=== PATIENT | female | born 1955 | race Caucasian/White ===

== ENCOUNTER 2020-10-26 07:01 | Inpatient (IN) | payer OTHER ==
--- OUTSIDE RECORDS SUMMARY | 2020-10-26 07:04 | XMS REPORT | Continuity of Care Document ---
:[address] [facility] t Address [address] [place] [address] Care Team Providers Name Role Phone Zahida Andersen PTA Attending Clinician Unavailable Mahin Vasquez PT Attending Clinician Unavailable Doctor Unassigned, Name Attending Clinician Unavailable Payers Payer Name Policy Type Policy Number Effective Date Expiration Date S ource Problems This patient has no known problems. Allergies, Adverse Reactions, Alerts Allergy Allergy Status Severity Reaction(s) Onset Inactive Treating Comm ents Source Name Type Date Date Clinician [place] DA Active [facility] 08-22 [place] [facility] penicill DA Active [place] [facility] in G 08-22 [place] 00:[facility]: d [facility] penicill DA Active SV 0 [facility] amine 08-17 [place] 00:[facility]: [facility]ope 00 [facility] hydrocor DA Active [facility] tisone 08-17 [place] 00:00: Orthope 00 [facility] hydrocod DA Active SV 0 [facility] one 08-17 [place] 00:[facility]: d [facility] Penicill DA Active SV 0 [facility] ins 08-17 [place] 00:00: [place] 00 [facility] penicill DA Active MO 2013-05 [facility] in 05-25 [place] 00:00: Orthope 00 dic Hosp[facility] l Medications This patient has no known medications. Procedures This patient has no known procedures. Encounters Start End Encounter Admission Attending Care Care Encounter Source Date/Time Date/Time Type Type Clinicians Facility Department ID 2020-08-28 2020-08-28 [place] Quintero [id number] 13:02:36 13:53:31 Visit Reji Camacho 350.1.13.10 [place] 4.2.7.2.686 Professio [id number] nal 179 Building 2020-08-24 2020-08-24 Ancillary Mahin [facility] [id number] 14:02:24 14:57:49 Visit Pedro Doug 350.1.13.10 [place] 4.2.7.2.686 Professio [id number] nal 179 [facility] 2020-08-24 2020-08-24 Orders Doctor SUZI [id number] 00:00:00 00:00:00 Only Unassigned, [place]OR[place] 350.1.13.10 [place] [facility] 4.2.7.2.686 [id number] 009 2018-09-16 2018-09-16 Outpatient [facility] PRABHU [address] [facility] 09:34:00 09:34:00 l García [facility] l [facility] l Results Test Description Test Time Test Comments Results Result [facility] e Comments - XR ABD COMP W 2020-10-14 APR/ 10:37:00 [facility] 1955 Sex: F Name: ZULY IZAGUIRRE [facility] : 1955 Age/S: 65 / F [address] Unit #: [id number] Loc: [place] [address] Phys: Undefined Provider Acct: [id number] Dis Date: Status: REG REF PHONE #: [phone] Exam Date: 10/14/2020 1009 FAX #: Reason: DARK EMESIS EXAMS: CPT: [id number] XR ABD COMP W APR/ERE Fluoro Time: DAP (Gy m2): Air Kerma (mGy): EXAM: - XR ABD COMP W APR/ERE INDICATION: DARK EMESIS Location: T 18. COMPARISON: None. TECHNIQUE: Upright and supine abdominal radiographs. FINDINGS: No bowel obstruction, ileus or free air seen. Moderate to largeamount of stool in the colon. IMPRESSION: No bowel obstruction, ileus or free air seen. Moderate to large amount of stool. at 1037 Reported and signed by: Alan Griffin M.D. CC: PAGE 1 Signed Report Name: ZULY IZAGUIRRE [facility] : 1955 Age/S: 65 / F [address] Unit #: [id number] Loc: [place] [address] Phys: Undefined Provider Acct: [id number] Dis Date: Status: REG REF PHONE #: [phone] Exam Date: 10/14/2020 1009 FAX #: Reason: DARK EMESIS EXAMS: CPT: [id number] XR ABD COMP W APR/ERE Fluoro Time: DAP (Gy m2): Air Kerma (mGy): <Continued> Technologist: RT Telma(R) Trnscb Date/Time: 10/14/2020 (1037) [email or web address] Orig Print D/T: S: 10/14/2020 (1041) PAGE 2 Signed Report COVID 19 Asymptomatic IH AG 2020-10-05 15:00:00 Test Item Value Reference Range Interpretation Comme nts COVID 19 Asymptomatic IH AG (test code = COVNONPUIAG) NEGATIVE NEGATIVE HGB [id number] 05:45:00 Test Item Value Reference Range Interpretation Comments HEMOGLOBIN (test code = HGB) 7.8 g/dL 12-16 L HEMATOCRIT (test code = HCT) 24.6 % 37-47 L HGB [id number] 06:48:00 Test Item Value Reference Range Interpretation Comments HEMOGLOBIN (test code = 6.8 g/dL 12-16 LL VERI FIED BY REPEAT HGB) ANALYSIS.CRITIC AL VALUE CALLED TO [facility]/TERRY RANGELREAD BACK & CONFIRMED? KELTON CampoLAB.MAV 10/04 0648 HEMATOCRIT (test code = 21.3 % 37-47 L HCT) SPECIMEN COMMENT: POD #1- XR KNEE 1 OR 2 V [id number] 16:50:[address] 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 at 1650 Reported and signed by: Jacob Gomes MD CC: Reji Solis MD Technologist: MCKENZIE MAHAN, RT(R) Transcribed D/ (1650) t.EDGARR.[facility] NAME: ZULY IZAGUIRRE [address] [facility] PHYS: Reji Doan MD : 1955 AGE: 65 SEX: F [place], [place] [address] LOC: Y.519 A PHONE #: [phone] EXAM DATE: 10/03/2020 STATUS: ADM IN FAX #: [phone] RAD #: D/C DT PAGE 1 Signed Report Patient Name: ZULY IZAGUIRRE Unit No: [id number] EXAMS: CPT CODE: [id number] XR KNEE 1 OR 2 [place] LT [address] <Continued> Orig Print D/T: S: 10/03/2020 (1653) [facility] [place] [facility] NAME: ZULY IZAGUIRRE [address] [facility] PHYS: Reji Doan MD : 1955 AGE: 65 SEX: F [place], [place] [address] LOC: Y.519 A PHONE #: [phone] DATE: 10/03/2020 STATUS: ADM IN FAX #: [phone] RAD #: D/C DT PAGE 2 Signed Report- XR FLUORO [id number] 12:22:00 [facility] 1955 Sex: F Patient Name: ZULY IZAGUIRRE Unit No: [id number] EXAMS: CPT CODE: [id number] [place]R [place] NDL [address]295 FLUOROSCOPICALLY GUIDED ASPIRATION OF THE LEFT KNEE COM MENT: After informed consent was obtained a needle was placed in the knee joint with fluoroscopic guidance. Its position was confirmed with an AP radiograph. 0.1 minutes of fluoroscopy time was utilized. 2 mL of cloudy pink fluid was aspirated and sent for analysis. No immediate complications were encountered. at 1222 Reported and signed by: Jacob Gomes MD CC: Quinton Mistry MD Technologist: Carly Guardado RT.(R) Transcribed D/ (1222) t.MELISSA.JCL [facility] [place] [facility] NAME: ZULY IZAGUIRRE [address] [facility] PHYS: BR. - Quinton Mistry MD : 1955 AGE: 65 SEX: F [place], [place] [address] LOC: Y.519 A PHONE #: [phone] EXAM DATE: 10/02/2020 STATUS: ADM IN FAX #: [phone] RAD #: D/C DT PAGE 1 Signed Report Patient Name: ZULY IZAGUIRRE Unit No: [id number] EXAMS: CPT CODE: [id number] XR FLUORO NDL 09267 <Continued> Orig Print D/T: S: 10/04/2020 (0927) [facility] [place] [facility] NAME: ZULY IZAGUIRRE [address] [facility] PHYS: JIA. - Quinton Mistry MD : 1955 AGE: 65 SEX: F [place], [place] [address] LOC: Y.519 A PHONE #: [phone] EXAM DATE: 10/02/2020 STATUS: ADM IN FAX #: [phone] RAD #: D/C DT PAGE [address] FLD CELL CT/[id number] 18:44:00 Test Item Value Reference Range Interpretation Comments SYNOVIAL FLD LIGHT YELLOW LT. YELLOW COLOR (test code = COLSY) SYNOVIAL FLD [place] CLEAR APPEARANCE (test code = APPSY) SYNOVIAL FLD 1 mL VOLUME (test code = VOLSY) SYNOVIAL FLD WBC 98392 /MM3 0-200 H VERIFIED BY DILUTION (test code = WBCSY) SYNOVIAL FLD RBC 70908.000 0-2 H NOTE: An a utomated (test code = /mm3 method is now b eing used RBCSY) to determinesyn ovial fluid WBC and R BC counts. The dif ferential willstill be pe rformed manually. SYNOVIAL FLD POLY 97 % 0-25 H (test code = POLYSY) SYNOVIAL FLD 2 % 0-78 N LYMPHOCYTE (test code = LYMPHSY) SYNOVIAL FLD 1 % 0-71 N MONOCYTE (test code = MONOSY) SPECIMEN COMMENT: LEFT KNEE ASPIRATION NOVIAL FLD CELL CT/DIFF 2020-10-02 18:41:00 Test Item Value Reference Range Interpretation Comments SYNOVIAL FLD COLOR LT. YELLOW (test code = COLSY) SYNOVIAL FLD CLEAR APPEARANCE (test code = APPSY) SYNOVIAL FLD mL VOLUME (test code = VOLSY) SYNOVIAL FLD WBC 04352 /MM3 0-200 H VERIFIED BY DILUTION (test code = WBCSY) SYNOVIAL FLD RBC 28889.000 0-2 H NOTE: An a utomated (test code = /mm3 method is now b eing used RBCSY) to determinesyn ovial fluid WBC and R BC counts. The dif ferential willstill be pe rformed manually. SPECIMEN COMMENT: LEFT KNEE ASPIRATION REACTIVE [id number] 17:06:00 Test Item Value Reference Range Interpretation Comments C REACTIVE PROTEIN (test code = 3.5 mg/dL <0.9 CRP) CBC W/AUTO [id number] 17:05:00 Test Item Value Reference Range Interpretation Comments WHITE BLOOD CELL (test code = WBC) 4.6 K/mm3 5.8-11.0 L RED BLOOD CELL (test code = RBC) 2.71 M/mm3 4.2-5.4 L HEMOGLOBIN (test code = HGB) 7.7 g/dL 12-16 L HEMATOCRIT (test code = HCT) 24.4 % 37-47 L MEAN CELL VOLUME (test code = MCV) 90 fL 80-98 N MEAN CELL HGB (test code = MCH) 28.4 pg 27-34 N MEAN CELL HGB CONCENTRATION (test 31.6 g/dL 30.8-34.1 N code = MCHC) RED CELL DISTRIBUTION WIDTH (test 17.2 % 11-16 H code = RDW) PLT (test code = PLT) 219 K/mm3 130-400 N MEAN PLATELET VOLUME (test code = 8.4 fL 8.9-12.1 L MPV) NEUTROPHIL % (test code = NT%) 74.3 % 45-70 H LYMPHOCYTE % (test code = LY%) 17.6 % 20-40 L MONOCYTE % (test code = MO%) 6.8 % 3-10 N EOSINOPHIL % (test code = EO%) 0.4 % 1-5 L BASOPHIL % (test code = BA%) 0.2 % 0.0-1.1 N NEUTROPHIL # (test code = NT#) 3.38 K/mm3 2.00-7.50 N LYMPHOCYTE # (test code = LY#) 0.80 K/mm3 1.50-4.00 L MONOCYTE # (test code = MO#) 0.31 K/mm3 0.2-0.8 N EOSINOPHIL # (test code = EO#) 0.02 K/mm3 0.04-0.4 L BASOPHIL # (test code = BA#) 0.01 K/mm3 0.02-0.10 L MANUAL DIFF REQUIRED (test code = NO MANUAL DIFF MDIFF) NUCLEATED RED BLOOD CELL (test 0 % 0-0 N code = NRBC) SED [id number] 17:05:00 Test Item Value Reference Range Interpretation Comments SED RATE (test code = SEDW) 105 mm/hr 0-20 H PROTHROMBIN [id number] 16:44:00 Test Item Value Reference Range Interpretation Comments PROTHROMBIN TIME 13.0 secs 10.1-12.5 H PATIENT (test code = PTP) INTERNATIONAL NORMAL 1.14 <2.0 RECOMME NDED THERAPEUTIC RATIO (test code = RANGE FOR ORAL INR) ANTICOAGULANTTR EATMENT: CONDI TION INRProphylaxis of venous thrombos is in 2.0 - 3.0 high-risk medic al or surgical patientsTreatme nt of venous thrombos is 2.0 - 3.0Prevention o f embolism 2.0 - 3.0Prevention o f recurrent embol ism, or 3.0 - 4. 5 patients with mechanical pros thetic intravascular v aguilar IS PATIENT ON ANTICOAGULANTS ? [facility] been notified if Patient is on Heparin Drip? NOTHROMBOPLASTIN TIME [id number] 16:44:00 Test Item Value Reference Range Interpretation Comments PTT ACTIVATED (test code = APTT) 29.2 secs 24.9-37.0 N IS PATIENT ON ANTICOAGULANTS ? [facility] been notified if Patient is on Heparin Drip? NO- XR CHEST 1 [id number] 16:35:[address] : 1955 Sex: F Patient Name: ZULY IZAGUIRRE Unit No: [id number] EXAMS: CPT CODE: [id number] XR CHEST 1 V 26578 PORTABLE CHEST October 02, 2020 1:09 PM COMMENT: COMPARISON: No prior exams available. A left-sided PICC line has been placed withthe tip in the SVC. at 1635 Reported and signed by: Jacob Gomes MD CC: Quinton Mistry MD Technologist: Carly Guardado RT.(R) Transcribed D/ (2042) t.SDR.[facility] NAME: ZULY IZAGUIRRE [address] [facility] PHYS: BRIMA. - Quinton Mistry MD : 1955 AGE: 65 SEX: F [place] [address] LOC: Y.519 A PHONE #: [phone] EXAM DATE: 10/02/2020 STATUS: ADM IN FAX #: [phone] RAD #: D/C DT PAGE 1 Signed Report Patient Name: ZULY IZAGUIRRE Unit No: [id number] EXAMS: CPT CODE: [id number] XR CHEST 1 V 27909 <Continued> Orig Print D/T: S: 10/02/2020 (7818) [facility] [place] [facility] NAME: ZULY IZAGUIRRE [address] [facility] PHYS: BR. - Quinton Mistry MD : 1955 AGE: 65 SEX: F [place], [place] [address] LOC: Y.519 A PHONE #: [phone] EXAM DATE: 10/02/2020 STATUS: ADM IN FAX #: [phone] RAD #: D/C DT PAGE 2 Signed ReportCOMPREHENSIVE METABOLIC [id number] 16:28:00 Test Item Value Reference Range Interpretation Comments SODIUM (test code = NA) 135 mmol/L 136-145 L POTASSIUM (test code = 4.0 mmol/L 3.5-5.1 N K) CHLORIDE (test code = 97.0 mmol/L 98-107 L CL) CARBON DIOXIDE (test 28.5 mmol/L 21-32 N code = CO2) GLUCOSE (test code = 120 mg/dL 70-110 H GLU) BLOOD UREA NITROGEN 14 mg/dL 7-18 N (test code = BUN) GLOMERULAR FILTRATION 54.4 >60 Unit o f measure: RATE (test code = GFR) mL/mi n/1.73 f4Sguefflkp Range:Healthy Adults >90 mL/min/1.73 m2 For Chronic Kidney Disease: St age II Mild Decrease in GFR 60-90 St age III Moderate Decrease in GFR 30-59 Stage IV Severe Decre ase in GFR 15- 29 Stage V Kidney Failure <15 CREATININE (test code = 1.02 mg/dL 0.55-1.30 N CREAT) TOTAL PROTEIN (test 6.2 g/dL 6.4-8.2 L code = PROT) ALBUMIN (test code = 2.7 g/dL 3.4-5.0 L ALB) GLOBULIN (test code = 3.5 g/dL 2.2-4.2 N GLOB) ALBUMIN/GLOBULIN RATIO 0.8 0.7-2.0 N (test code = A/G) CALCIUM (test code = 8.6 mg/dL 8.2-10.1 N CA) BILIRUBIN TOTAL (test 0.30 mg/dL 0.2-1.00 N code = BILT) SGOT/AST (test code = 14.0 U/L 15-37 L AST) SGPT/ALT (test code = 22.0 U/L 12-78 N Please note new ALT) normal range. ALKALINE PHOSPHATASE 209 U/L 46-116 H TOTAL (test code = ALKP) CBC W/AUTO [id number] 15:58:00 Test Item Value Reference Range Interpretation Comments WHITE BLOOD CELL (test code = WBC) 4.6 K/mm3 5.8-11.0 L RED BLOOD CELL (test code = RBC) 2.71 M/mm3 4.2-5.4 L HEMOGLOBIN (test code = HGB) 7.7 g/dL 12-16 L HEMATOCRIT (test code = HCT) 24.4 % 37-47 L MEAN CELL VOLUME (test code = MCV) 90 fL 80-98 N MEAN CELL HGB (test code = MCH) 28.4 pg 27-34 N MEAN CELL HGB CONCENTRATION (test 31.6 g/dL 30.8-34.1 N code = MCHC) RED CELL DISTRIBUTION WIDTH (test 17.2 % 11-16 H code = RDW) PLT (test code = PLT) 219 K/mm3 130-400 N MEAN PLATELET VOLUME (test code = 8.4 fL 8.9-12.1 L MPV) NEUTROPHIL % (test code = NT%) 74.3 % 45-70 H LYMPHOCYTE % (test code = LY%) 17.6 % 20-40 L MONOCYTE % (test code = MO%) 6.8 % 3-10 N EOSINOPHIL % (test code = EO%) 0.4 % 1-5 L BASOPHIL % (test code = BA%) 0.2 % 0.0-1.1 N NEUTROPHIL # (test code = NT#) 3.38 K/mm3 2.00-7.50 N LYMPHOCYTE # (test code = LY#) 0.80 K/mm3 1.50-4.00 L MONOCYTE # (test code = MO#) 0.31 K/mm3 0.2-0.8 N EOSINOPHIL # (test code = EO#) 0.02 K/mm3 0.04-0.4 L BASOPHIL # (test code = BA#) 0.01 K/mm3 0.02-0.10 L MANUAL DIFF REQUIRED (test code = NO MANUAL DIFF MDIFF) NUCLEATED RED BLOOD CELL (test 0 % 0-0 N code = NRBC) SED [id number] 15:58:00 Test Item Value Reference Range Interpretation Comments SED RATE (test code = SEDW) mm/hr 0-20 COVID 19 Asymptomatic IH [id number] 11:58:00 Test Item Value Reference Range Interpretation Comments COVID 19 Asymptomatic IH AG (test NEGATIVE NEGATIVE code = COVNONPUIAG) - MRI LW JNT W/O CONT [id number] 10:56:[address] : 1955 Sex: F Patient Name: ZULY IZAGUIRRE Unit No: [id number] EXAMS: CPT CODE: [id number] [place] JNT W/[place] [address] TECHNIQUE: Multiplanar multisequence images of the pelvis/left hip were obtained without the administration of intravenous contrast. COMPARISON STUDY: CT dated 09/22/2020 FINDINGS: An intramedullary gabriel is present within the left femur, recent in appearance. No evidence of femoral neck fracture is visualized. The left femur is largely obscured. There are subtle increased signal adjacent to one of the proximal interlocking screws which could be postsurgical or possibly artifact. Intramuscular edema of the left distal thigh is also noted. No evidence of abscess. The right femur is unremarkable. IMPRESSION: No femoral neck fracture visualized. at 1056 Reported and signed by: Moises Knight M.D. CC: Quinton Mistry MD Technologist: Derek Mehta(Olesya) Transcribed D/ (1052) AnelSLJ [facility] [place] [facility] NAME: ZULY IZAGUIRRE [address] PHYS: JOSE.01 - Quinton Mistry MD : 1955 AGE: 65 SEX: F [place], [place] [address] LOC: Y.MRI PHONE #: [phone] EXAM DATE: 09/25/2020 STATUS: DEP CLI FAX #: [phone] RAD #: D/C DT PAGE 1 Signed Report Patient Name: ZULY IZAGUIRRE Unit No: [id number] EXAMS: CPT CODE: [id number] MRI LW JNT W/[place] [address] <Continued> Orig Print D/T: S: 09/26/2020 (1059) [facility] [place] [facility] NAME: ZULY IZAGUIRRE [address] [facility] PHYS: BRIMA.Adam -Quinton Mistry MD : 1955 AGE: 65 SEX: F [place], [place] [address] LOC: Y.MRI PHONE #: [phone] EXAM DATE: 09/25/2020 STATUS: DEP CLI FAX #: [phone] RAD #:D/C DT PAGE 2 Signed Report- CT LOWER EXTRM W/O C [id number] 16:40:00[facility] : 1955 Sex: F Patient Name: ZULY IZAGUIRRE Unit No: [id number] EXAMS: CPT CODE: [id number] CT LOWER EXTRM W/[place] [address] [place] OF THE LEFT PROXIMAL FEMUR WITH SAGITTAL AND CORONAL RECONSTRUCTIONS DIAGNOSIS: There is a subtle bone density lucency across the base of the femoral neck which may represent a nondisplaced fracture. MRI is recommended for evaluation if clinically indicated. COMMENT: COMPARISON: No prior exams available. Scans were performed with thin sections and reconstructions were obtained. CT radiation dose optimization is achieved for this examination by the use of a CT protocol in accordance with ACR practice standards and adherence to life sciences teacher's recommendations. A questionable transverse fracture base of the femoral neck is seen. The proximal end of an intramedullary nail is noted. No subluxation of the hip joint is seen. at 1640 Reported and signed by: Jacob Gomes MD CC: Quinton Mistry MD Technologist: Karen Andersen RT(R); Mario Ramos CTDI: DLP: Trnscrpt: 09/22/2020 (1640) t.SDR.JCL [facility] [place] [facility] NAME: ZULY IZAGUIRRE [address] [facility] PHYS: BRIMA. - Quinton Mistry MD : 1955 AGE: 65 SEX: F [place] [address] LOC: Y.RAD PHONE #: [phone] EXAM DATE: 09/22/2020 STATUS: REG CLI FAX #: [phone] RAD #: D/C DT PAGE 1 Signed Report Patient Name: ZULY IZAGUIRRE Unit No: [id number] EXAMS: CPT CODE: [id number] [place] EXTRM W/[place] [address] <Continued> Orig Print D/T: S: 09/22/2020 (1643) [facility] [place] [facility] NAME: ZULY IZAGUIRRE [address] [facility] PHYS: BRIMA. - Quinton Mistry MD : 1955 AGE: 65 SEX: F [place] [address] LOC: Y.RAD PHONE #: [phone] EXAM DATE: STATUS: REG CLI FAX #: [phone] RAD #: D/C DT PAGE 2 Signed ReportCBC W/AUTO [id number] 05:53:00 Test Item Value Reference Range Interpretation Comments WHITE BLOOD CELL (test 4.8 K/mm3 6.5-12.3 L DONE AT: [facility] code = WBC) [facility] [address] [place], [place] [address] RED BLOOD CELL (test 2.78 M/mm3 3.51-4.69 L code = RBC) HEMOGLOBIN (test code = 8.2 g/dL 10.1-13.8 L HGB) HEMATOCRIT (test code = 26.5 % 32.5-41.8 L HCT) MEAN CELL VOLUME (test 95.3 fL 84.6-96.6 code = MCV) MEAN CELL HGB (test 29.5 pg 27.3-33.9 code = MCH) MEAN CELL HGB 30.9 gm/dL 32.0-34.2 L CONCENTRATION (test code = MCHC) RED CELL DISTRIBUTION 15.9 % 12.2-16.3 WIDTH (test code = RDW) PLT (test code = PLT) 149 K/mm3 134-363 MEAN PLATELET VOLUME 10.5 fL 9.2-12.7 (test code = MPV) NEUTROPHIL % (test code 76.3 % 57.9-77.3 = NT%) LYMPHOCYTE % (test code 15.6 % 14.5-29.7 = LY%) MONOCYTE % (test code = 5.4 % 3.6-10.2 MO%) EOSINOPHIL % (test code 1.0 % 0.0-3.0 = EO%) BASOPHIL % (test code = 0.2 % 0.1-0.9 BA%) NEUTROPHIL # (test code 3.7 K/mm3 See_Comment [Au tomated message] = NT#) The system [email or web address] generated this result transmit kurtis reference range : (). The reference r shalonda was not used to interpret this result as normal/abnormal . LYMPHOCYTE # (test code 0.8 K/mm3 See_Comment [Au tomated message] = LY#) The system [email or web address] generated this result transmit kurtis reference range : (). The reference r shalonda was not used to interpret this result as normal/abnormal . MONOCYTE # (test code = 0.3 K/mm3 See_Comment [Au tomated message] MO#) The system [employer] generated this result transmit kurtis reference range : (). The reference r shalonda was not used to interpret this result as normal/abnormal . EOSINOPHIL # (test code 0.05 K/mm3 See_Comment [Au tomated message] = EO#) The system [employer] generated this result transmit kurtis reference range : (). The reference r shalonda was not used to interpret this result as normal/abnormal . BASOPHIL # (test code = 0 K/mm3 See_Comment [Au tomated message] BA#) The system [employer] generated this result transmit kurtis reference range : (). The reference r shalonda was not used to interpret this result as normal/abnormal . PLATELET MORPHOLOGY NORMAL NORMAL REQUIRED (test code = PLTMR) CBC W/AUTO [id number] 05:52:00 Test Item Value Reference Range Interpretation Comments WHITE BLOOD CELL (test code = WBC) 4.8 K/mm3 6.5-12.3 L RED BLOOD CELL (test code = RBC) 2.78 M/mm3 3.51-4.69 L HEMOGLOBIN (test code = HGB) 8.2 g/dL 10.1-13.8 L HEMATOCRIT (test code = HCT) 26.5 % 32.5-41.8 L MEAN CELL VOLUME (test code = MCV) 95.3 fL 84.6-96.6 N MEAN CELL HGB (test code = MCH) 29.5 pg 27.3-33.9 N MEAN CELL HGB CONCETRATION (test 30.9 gm/dL 32.0-34.2 L code = MCHC) RED CELL DISTRIBUTION WIDTH (test 15.9 % 12.2-16.3 N code = RDW) PLATELET COUNT (test code = PLT) 149 K/mm3 134-363 N IMMATURE PLATELET FRACTION (test 3.5 % 0.0-10.8 N code = IPF) MEAN PLATELET VOLUME (test code = 10.5 fL 9.2-12.7 N MPV) NEUTROPHIL % (test code = NT%) 76.3 % 57.9-77.3 N LYMPHOCYTE % (test code = LY%) 15.6 % 14.5-29.7 N MONOCYTE % (test code = MO%) 5.4 % 3.6-10.2 N EOSINOPHIL % (test code = EO%) 1.0 % 0.0-3.0 N BASOPHIL % (test code = BA%) 0.2 % 0.1-0.9 N NEUTROPHIL # (test code = NT#) 3.7 K/mm3 LYMPHOCYTE # (test code = LY#) 0.8 K/mm3 MONOCYTE # (test code = MO#) 0.3 K/mm3 EOSINOPHIL # (test code = EO#) 0.05 K/mm3 BASOPHIL # (test code = BA#) 0.0 K/mm3 RBC MORPHOLOGY REQUIRED (test code NORMAL NORMAL = RBCM) PLATELET MORPHOLOGY REQUIRED (test NORMAL NORMAL code = PLTMR) BASIC METABOLIC [id number] 05:48:00 Test Item Value Reference Range Interpretation Comments SODIUM (test code = NA) 138 mEq/L 135-145 POTASSIUM (test code = 5.3 mEq/L 3.5-5.0 H K) CHLORIDE (test code = 99 mEq/L 100-115 L CL) CARBON DIOXIDE (test 30 mEq/L 22-31 code = CO2) GLUCOSE (test code = 130 mg/dL 65-110 H GLU) BLOOD UREA NITROGEN 13 mg/dL 7-18 (test code = BUN) GLOMERULAR FILTRATION 62.8 >60 Unit o f measure: RATE (test code = GFR) mL/mi n/1.73 [id number] Range:Healthy A dults >90 mL/min/1.73 m2 For Chronic Kidney Disease: St age II Mild Decrea se in GFR 60-9 0 Stage III Mo derate Decrease in GFR 30-59 Stage IV Severe Decreas e in GFR 15-29 Stage V Ki dney Failure <15Unit of cordell ure: mL/min/1.73 [id number] Range:Healthy A dults >90 mL/min/1.73 m2 For Chronic Kidney Disease: St age II Mild Decrea se in GFR 60-9 0 Stage III Mo derate Decrease in GFR 30-59 Stage IV Severe Decreas e in GFR 15-29 Stage V Ki dney Failure <15 CREATININE (test code = 0.9 mg/dL 0.5-1.0 CREAT) CALCIUM (test code = 8.7 mg/dL 8.4-10.2 CA) BASIC METABOLIC [id number] 05:48:00 Test Item Value Reference Range Interpretation Comments SODIUM (test code = NA) 138 mEq/L 135-145 N POTASSIUM (test code = K) 5.3 mEq/L 3.5-5.0 H CHLORIDE (test code = CL) 99 mEq/L 100-115 L CARBON DIOXIDE (test code = CO2) 30 mEq/L 22-31 N GLUCOSE (test code = GLU) 130 mg/dL 65-110 H BLOOD UREA NITROGEN (test code = 13 mg/dL 7-18 N BUN) GLOMERULAR FILTRATION RATE (test 63 ml/min >60 N code = GFR) CREATININE (test code = CREAT) 0.9 mg/dL 0.5-1.0 N CALCIUM (test code = CA) 8.7 mg/dL 8.4-10.2 N - XR SHOULDER 1 V [id number] 17:00:[address] [facility] : 1955 Sex: F Patient Name: ZULY IZAGUIRRE Unit No: [id number] EXAMS: CPT CODE: [id number] XR SHOULDER 1 V LT [id number] IMAGES PROVIDED: Single view of the left shoulder FINDINGS: No acute fracture or malalignment. The left glenohumeral joint is within normal limits. Mild AC joint degenerative changes are present. The visualized left lung is clear. IMPRESSION: No acute findings at 1700 Reported and signed by: Moises Knight M.D. CC: Quinton Mistry MD; Scout Poole MD Technologist: Derek Tom(R) Transcri bed D/ (1700) [facility]: [facility] [id number] [facility] [address] PHYS: Scout Segovia MD : 1955 AGE: 65 SEX: F [place], [place] [address] LOC: Y.514 A PHONE #: [phone] EX AM DATE: 09/02/2020 STATUS: ADM IN FAX #: [phone] RAD #: D/C DT PAGE 1 Signed Report Patient Name: ZULY IZAGUIRRE Unit No: [id number] EXAMS: CPT CODE: [id number] XR SHOULDER 1 V LT 72681 <Continued> Orig Print D/T: S: 09/02/2020 (1703) [facility] [place] [facility] NAME: ZULY IZAGUIRRE [address] [facility] PHYS: Scout Segovia MD : 1955 AGE: 65 SEX: F [place], [place] [address] LOC: Y.514 A PHONE #: [phone] EXAM DATE: 09/02/2020 STATUS: ADM IN FAX #: [phone] RAD #: D/C DT PAGE 2 Signed ReportCBC W/AUTO [id number] 07:09:00 Test Item Value Reference Range Interpretation Comments WHITE BLOOD CELL (test 4.8 K/mm3 5.8-11.0 L code = WBC) RED BLOOD CELL (test 2.28 M/mm3 4.2-5.4 L code = RBC) HEMOGLOBIN (test code = 6.7 g/dL 12-16 LL VERI FIED BY REPEAT HGB) ANALYSIS.CRITIC AL VALUE CALLED TO KETURAH/FANY PLUMMER & CONFIRMED? TREVIN MEDRANO F.LAB.AEG 09/02 0708 HEMATOCRIT (test code = 21.1 % 37-47 L HCT) MEAN CELL VOLUME (test 93 fL 80-98 N code = MCV) MEAN CELL HGB (test code 29.4 pg 27-34 N = MCH) MEAN CELL HGB 31.8 g/dL 30.8-34.1 N CONCENTRATION (test code = MCHC) RED CELL DISTRIBUTION 15.5 % 11-16 N WIDTH (test code = RDW) PLT (test code = PLT) 163 K/mm3 130-400 N MEAN PLATELET VOLUME 9.7 fL 8.9-12.1 N (test code = MPV) NEUTROPHIL % (test code 75.1 % 45-70 H = NT%) LYMPHOCYTE % (test code 15.8 % 20-40 L = LY%) MONOCYTE % (test code = 6.1 % 3-10 N MO%) EOSINOPHIL % (test code 1.5 % 1-5 N = EO%) BASOPHIL % (test code = 0.2 % 0.0-1.1 N BA%) NEUTROPHIL # (test code 3.57 K/mm3 2.00-7.50 N = NT#) LYMPHOCYTE # (test code 0.75 K/mm3 1.50-4.00 L = LY#) MONOCYTE # (test code = 0.29 K/mm3 0.2-0.8 N MO#) EOSINOPHIL # (test code 0.07 K/mm3 0.04-0.4 N = EO#) BASOPHIL # (test code = 0.01 K/mm3 0.02-0.10 L BA#) MANUAL DIFF REQUIRED NO MANUAL DIFF (test code = MDIFF) NUCLEATED RED BLOOD CELL 0 % 0-0 N (test code = NRBC) BASIC METABOLIC [id number] 06:47:00 Test Item Value Reference Range Interpretation Comments SODIUM (test code = 137 mmol/L 136-145 N NA) POTASSIUM (test code = 5.2 mmol/L 3.5-5.1 H K) CHLORIDE (test code = 101.0 mmol/L 98-107 N CL) CARBON DIOXIDE (test 26.6 mmol/L 21-32 N code = CO2) GLUCOSE (test code = 108 mg/dL 70-110 N GLU) BLOOD UREA NITROGEN 18 mg/dL 7-18 N (test code = BUN) GLOMERULAR FILTRATION 43.0 >60 Unit o f measure: RATE (test code = GFR) mL/mi n/1.73 [id number] Range:Healthy Adults >90 mL/min/1.73 m2 For Chronic Kidney Disease: St age II Mild Decrease in GFR 60-90 St age III Moderate Decrease in GFR 30-59 Stage IV Severe Decre ase in GFR 15- 29 Stage V Kidney Failure <15 CREATININE (test code 1.25 mg/dL 0.55-1.30 N = CREAT) CALCIUM (test code = 8.7 mg/dL 8.2-10.1 N CA) CBC W/AUTO [id number] 06:03:00 Test Item Value Reference Range Interpretation Comments WHITE BLOOD CELL (test code = WBC) 7.7 K/mm3 5.8-11.0 N RED BLOOD CELL (test code = RBC) 2.76 M/mm3 4.2-5.4 L HEMOGLOBIN (test code = HGB) 8.3 g/dL 12-16 L HEMATOCRIT (test code = HCT) 25.9 % 37-47 L MEAN CELL VOLUME (test code = MCV) 94 fL 80-98 N MEAN CELL HGB (test code = MCH) 30.1 pg 27-34 N MEAN CELL HGB CONCENTRATION (test 32.0 g/dL 30.8-34.1 N code = MCHC) RED CELL DISTRIBUTION WIDTH (test 15.8 % 11-16 N code = RDW) PLT (test code = PLT) 207 K/mm3 130-400 N MEAN PLATELET VOLUME (test code = 9.5 fL 8.9-12.1 N MPV) NEUTROPHIL % (test code = NT%) 76.8 % 45-70 H LYMPHOCYTE % (test code = LY%) 15.5 % 20-40 L MONOCYTE % (test code = MO%) 5.3 % 3-10 N EOSINOPHIL % (test code = EO%) 1.2 % 1-5 N BASOPHIL % (test code = BA%) 0.3 % 0.0-1.1 N NEUTROPHIL # (test code = NT#) 5.92 K/mm3 2.00-7.50 N LYMPHOCYTE # (test code = LY#) 1.19 K/mm3 1.50-4.00 L MONOCYTE # (test code = MO#) 0.41 K/mm3 0.2-0.8 N EOSINOPHIL # (test code = EO#) 0.09 K/mm3 0.04-0.4 N BASOPHIL # (test code = BA#) 0.02 K/mm3 0.02-0.10 N MANUAL DIFF REQUIRED (test code = NO MANUAL DIFF MDIFF) NUCLEATED RED BLOOD CELL (test 0.3 % 0-0 H code = NRBC) C REACTIVE [id number] 21:06:00 Test Item Value Reference Range Interpretation Comments C REACTIVE PROTEIN (test code = 1.6 mg/dL <0.9 CRP) ACUTE HEPATITIS [id number] 21:06:00 Test Item Value Reference Range Interpretation Comments AB HEPATITIS A IGM (test code = NONREACTIVE NONREACTIVE HAVMAB) AG HEPATITIS B SURFACE (test code NONREACTIVE NONREACTIVE = HBSAG) AB HEPATITIS B CORE IGM (test NONREACTIVE NONREACTIVE code = HBCMAB) AB HEPATITIS C (test code = NONREACTIVE NONREACTIVE HCVAB) SIGNAL TO CUTOFF (test code = 0.04 <0.80 CUTOFF) AB HIV 21:06:00 Test Item Value Reference Range Interpretation Comments AB HIV 1 (test code NONREACTIVE NONREACTIVE DONE AT: [facility] = HIV1AB) [facility] [address] [place], [place] [address]Done by [employer] 4th Gen HIV Ag/Ab C ombo Screen ACUTE HEPATITIS [id number] 21:05:00 Test Item Value Reference Range Interpretation Comments AB HEPATITIS A IGM (test code = NONREACTIVE NONREACTIVE HAVMAB) AG HEPATITIS B SURFACE (test code NONREACTIVE NONREACTIVE = HBSAG) AB HEPATITIS B CORE IGM (test NONREACTIVE NONREACTIVE code = HBCMAB) AB HEPATITIS C (test code = NONREACTIVE NONREACTIVE HCVAB) SIGNAL TO CUTOFF (test code = 0.04 <0.80 N CUTOFF) AB HIV 1 21:05:00 Test Item Value Reference Range Interpretation Comments AB HIV 1 2 (test NONREACTIVE NONREACTIVE Done by [facility] code = [id number]) 4th Gen HIV Ag/Ab Combo Screen C REACTIVE [id number] 20:37:00 Test Item Value Reference Range Interpretation Comments C REACTIVE PROTEIN (test code = 1.6 mg/dL <0.9 CRP) ACUTE HEPATITIS [id number] 20:37:00 Test Item Value Reference Range Interpretation Comments AB HEPATITIS A IGM (test code = NONREACTIVE HAVMAB) AG HEPATITIS B SURFACE (test code NONREACTIVE NONREACTIVE = HBSAG) AB HEPATITIS B CORE IGM (test code = HBCMAB) AB HEPATITIS C (test code = NONREACTIVE HCVAB) SIGNAL TO CUTOFF (test code = CUTOFF) AB HIV 20:37:00 Test Item Value Reference Range Interpretation Comments AB HIV 1 (test code = HIV1AB) NONREACTIVE ACUTE HEPATITIS [id number] 20:37:00 Test Item Value Reference Range Interpretation Comments AB HEPATITIS A IGM (test code = NONREACTIVE HAVMAB) AG HEPATITIS B SURFACE (test code NONREACTIVE NONREACTIVE = HBSAG) AB HEPATITIS B CORE IGM (test NONREACTIVE code = HBCMAB) AB HEPATITIS C (test code = NONREACTIVE HCVAB) SIGNAL TO CUTOFF (test code = <0.80 CUTOFF) AB HIV 1 20:37:00 Test Item Value Reference Range Interpretation Comments AB HIV 1 2 (test code = [id number]) NONREACTIVE CBC W/AUTO [id number] 18:31:00 Test Item Value Reference Range Interpretation Comments WHITE BLOOD CELL (test code = WBC) 6.8 K/mm3 5.8-11.0 N RED BLOOD CELL (test code = RBC) 3.21 M/mm3 4.2-5.4 L HEMOGLOBIN (test code = HGB) 9.6 g/dL 12-16 L HEMATOCRIT (test code = HCT) 28.8 % 37-47 L MEAN CELL VOLUME (test code = MCV) 90 fL 80-98 N MEAN CELL HGB (test code = MCH) 29.9 pg 27-34 N MEAN CELL HGB CONCENTRATION (test 33.3 g/dL 30.8-34.1 N code = MCHC) RED CELL DISTRIBUTION WIDTH (test 15.1 % 11-16 N code = RDW) PLT (test code = PLT) 210 K/mm3 130-400 N MEAN PLATELET VOLUME (test code = 9.3 fL 8.9-12.1 N MPV) NEUTROPHIL % (test code = NT%) 83.1 % 45-70 H LYMPHOCYTE % (test code = LY%) 8.5 % 20-40 L MONOCYTE % (test code = MO%) 6.6 % 3-10 N EOSINOPHIL % (test code = EO%) 0.3 % 1-5 L BASOPHIL % (test code = BA%) 0.3 % 0.0-1.1 N NEUTROPHIL # (test code = NT#) 5.67 K/mm3 2.00-7.50 N LYMPHOCYTE # (test code = LY#) 0.58 K/mm3 1.50-4.00 L MONOCYTE # (test code = MO#) 0.45 K/mm3 0.2-0.8 N EOSINOPHIL # (test code = EO#) 0.02 K/mm3 0.04-0.4 L BASOPHIL # (test code = BA#) 0.02 K/mm3 0.02-0.10 N MANUAL DIFF REQUIRED (test code = NO MANUAL DIFF MDIFF) NUCLEATED RED BLOOD CELL (test 0 % 0-0 N code = NRBC) SED [id number] 18:31:00 Test Item Value Reference Range Interpretation Comments SED RATE (test code = SEDW) 61 mm/hr 0-20 H PROTHROMBIN [id number] 18:17:00 Test Item Value Reference Range Interpretation Comments PROTHROMBIN TIME 12.9 secs 10.1-12.5 H PATIENT (test code = PTP) INTERNATIONAL NORMAL 1.13 <2.0 RECOMME NDED THERAPEUTIC RATIO (test code = RANGE FOR ORAL INR) ANTICOAGULANTTR EATMENT: CONDI TION INRProphylaxis of venous thrombos is in 2.0 - 3.0 high-risk medic al or surgical patientsTreatme nt of venous thrombos is 2.0 - 3.0Prevention o f embolism 2.0 - 3.0Prevention o f recurrent embol ism, or 3.0 - 4. 5 patients with mechanical pros thetic intravascular v aguilar IS PATIENT ON ANTICOAGULANTS ? YLIST ANTICOAGULANT/ANTI PLT MEDICATION : AspirinHas Lab been notified if Patient is on Heparin Drip? NOTHROMBOPLASTIN TIME [id number] 18:17:00 Test Item Value Reference Range Interpretation Comments PTT ACTIVATED (test code = APTT) 20.9 secs 24.9-37.0 L IS PATIENT ON ANTICOAGULANTS ? YLIST ANTICOAGULANT/ANTI PLT MEDICATION : AspirinHas Lab been notified if Patient is on Heparin Drip? NOC REACTIVE PROTEIN 2020-08-30 17:49:00 Test Item Value Reference Range Interpretation Comments C REACTIVE PROTEIN (test code = 1.6 mg/dL <0.9 CRP) ACUTE HEPATITIS [id number] 17:49:00 Test Item Value Reference Range Interpretation Comments AB HEPATITIS A IGM (test code = HAVMAB) NONREACTIVE AG HEPATITIS B SURFACE (test code = NONREACTIVE HBSAG) AB HEPATITIS B CORE IGM (test code = HBCMAB) AB HEPATITIS C (test code = HCVAB) NONREACTIVE SIGNAL TO CUTOFF (test code = CUTOFF) AB HIV 17:49:00 Test Item Value Reference Range Interpretation Comments AB HIV 1 (test code = HIV1AB) NONREACTIVE COMPREHENSIVE METABOLIC [id number] 17:49:00 Test Item Value Reference Range Interpretation Comments SODIUM (test code = 138 mmol/L 136-145 N NA) POTASSIUM (test code = 4.7 mmol/L 3.5-5.1 N K) CHLORIDE (test code = 101.0 mmol/L 98-107 N CL) CARBON DIOXIDE (test 25.2 mmol/L 21-32 N code = CO2) GLUCOSE (test code = 112 mg/dL 70-110 H GLU) BLOOD UREA NITROGEN 22 mg/dL 7-18 H (test code = BUN) GLOMERULAR FILTRATION 48.3 >60 Unit o f measure: RATE (test code = GFR) mL/mi n/1.73 [id number] Range:Healthy Adults >90 mL/min/1.73 m2 For Chronic Kidney Disease: St age II Mild Decrease in GFR 60-90 St age III Moderate Decrease in GFR 30-59 Stage IV Severe Decre ase in GFR 15- 29 Stage V Kidney Failure <15 CREATININE (test code 1.13 mg/dL 0.55-1.30 N = CREAT) TOTAL PROTEIN (test 6.1 g/dL 6.4-8.2 L code = PROT) ALBUMIN (test code = 3.1 g/dL 3.4-5.0 L ALB) GLOBULIN (test code = 3.0 g/dL 2.2-4.2 N GLOB) ALBUMIN/GLOBULIN RATIO 1.0 0.7-2.0 N (test code = A/G) CALCIUM (test code = 8.7 mg/dL 8.2-10.1 N CA) BILIRUBIN TOTAL (test 0.40 mg/dL 0.2-1.00 N code = BILT) SGOT/AST (test code = 26.0 U/L 15-37 N AST) SGPT/ALT (test code = 25.0 U/L 12-78 N Please note new ALT) normal range. ALKALINE PHOSPHATASE 78 U/L 46-116 N TOTAL (test code = ALKP) CBC W/AUTO [id number] 17:36:00 Test Item Value Reference Range Interpretation Comments WHITE BLOOD CELL (test code = WBC) 6.8 K/mm3 5.8-11.0 N RED BLOOD CELL (test code = RBC) 3.21 M/mm3 4.2-5.4 L HEMOGLOBIN (test code = HGB) 9.6 g/dL 12-16 L HEMATOCRIT (test code = HCT) 28.8 % 37-47 L MEAN CELL VOLUME (test code = MCV) 90 fL 80-98 N MEAN CELL HGB (test code = MCH) 29.9 pg 27-34 N MEAN CELL HGB CONCENTRATION (test 33.3 g/dL 30.8-34.1 N code = MCHC) RED CELL DISTRIBUTION WIDTH (test 15.1 % 11-16 N code = RDW) PLT (test code = PLT) 210 K/mm3 130-400 N MEAN PLATELET VOLUME (test code = 9.3 fL 8.9-12.1 N MPV) NEUTROPHIL % (test code = NT%) 83.1 % 45-70 H LYMPHOCYTE % (test code = LY%) 8.5 % 20-40 L MONOCYTE % (test code = MO%) 6.6 % 3-10 N EOSINOPHIL % (test code = EO%) 0.3 % 1-5 L BASOPHIL % (test code = BA%) 0.3 % 0.0-1.1 N NEUTROPHIL # (test code = NT#) 5.67 K/mm3 2.00-7.50 N LYMPHOCYTE # (test code = LY#) 0.58 K/mm3 1.50-4.00 L MONOCYTE # (test code = MO#) 0.45 K/mm3 0.2-0.8 N EOSINOPHIL # (test code = EO#) 0.02 K/mm3 0.04-0.4 L BASOPHIL # (test code = BA#) 0.02 K/mm3 0.02-0.10 N MANUAL DIFF REQUIRED (test code = NO MANUAL DIFF MDIFF) NUCLEATED RED BLOOD CELL (test 0 % 0-0 N code = NRBC) SED [id number] 17:36:00 Test Item Value Reference Range Interpretation Comments SED RATE (test code = SEDW) mm/hr 0-20 COVID 19 Asymptomatic IH [id number] 16:26:00 Test Item Value Reference Range Interpretation Comments COVID 19 Asymptomatic IH AG (test NEGATIVE NEGATIVE code = COVNONPUIAG) - XR KNEE 1 OR 2 V [id number] 08:14:[address] : 1955 Sex: F Patient Name: ZULY IZAGUIRRE Unit No: [id number] EXAMS: CPT CODE: [id number] XR KNEE 1 OR 2 V LT [address] IMAGES PROVIDED: 2 FINDINGS: Postoperative changes from left total knee arthoplasty demonstrated without evidence of immediate complication. Noacute fracture is visualized. IMPRESSION: Postoperative exam as above. Electronically Signed by Derik Knight on 12/2020 at 0814 Reported and signed by: Moises Knight M.D. CC: Reji Solis MD Technologist: MCKENZIE MAHAN, RT(R) Transcribed D/ (0814) t.MELISSA.[facility] NAME: ZULY IZAGUIRRE [address] [address] PHYS: Reji Doan MD : 1955 AGE: 65 SEX: F [place] [address] LOC: Y.320 A PHONE #: [phone] EXAM DATE: 08/22/2020 STATUS: DIS IN FAX #: [phone] RAD #: D/C DT 08/23/2020 PAGE 1 Signed Report Patient Name: ZULY IZAGUIRRE Unit No: [id number] EXAMS: CPT CODE: [id number] XR KNEE 1 OR 2 V LT 10670 <Continued> Orig Print D/T: S: 08/24/2020 (0817) [facility] NAME: ZULY IZAGUIRRE [address] [facility] [address] PHYS: Reji Doan MD : 1955 AGE: 65 SEX: F [place] [address] LOC: Y.320 A PHONE #: [phone] EXAM DATE: 08/22/2020 STATUS: DIS IN FAX #: [phone] RAD #: D/C DT 08/23/2020 PAGE 2 Signed ReportBASIC METABOLIC [id number] 06:47:00 Test Item Value Reference Range Interpretation Comments SODIUM (test code = 135 mmol/L 136-145 L NA) POTASSIUM (test code = 4.5 mmol/L 3.5-5.1 N K) CHLORIDE (test code = 100.0 mmol/L 98-107 N CL) CARBON DIOXIDE (test 24.1 mmol/L 21-32 N code = CO2) GLUCOSE (test code = 121 mg/dL 70-110 H GLU) BLOOD UREA NITROGEN 19 mg/dL 7-18 H (test code = BUN) GLOMERULAR FILTRATION 45.1 >60 Unit o f measure: RATE (test code = GFR) mL/mi n/1.73 [id number] Range:Healthy Adults >90 mL/min/1.73 m2 For Chronic Kidney Disease: St age II Mild Decrease in GFR 60-90 St age III Moderate Decrease in GFR 30-59 Stage IV Severe Decre ase in GFR 15- 29 Stage V Kidney Failure <15 CREATININE (test code 1.20 mg/dL 0.55-1.30 N = CREAT) CALCIUM (test code = 8.1 mg/dL 8.2-10.1 L CA) HGB [id number] 06:04:00 Test Item Value Reference Range Interpretation Comments HEMOGLOBIN (test code = HGB) 10.5 g/dL 12-16 L HEMATOCRIT (test code = HCT) 32.1 % 37-47 L SPECIMEN COMMENT: POD #1Novel Coronavirus 2019 [id number] 14:51:00 Test Item Value Reference Range Interpretation Comments Novel Coronavirus Negative Negative Positive r esults are 2019 Inhouse (test indicativ e of the presence code = COVNONPUI) ofSARS-CoV -2 RNA, clinical correlation wit h patient historyand othe r diagnostic info rmation is necessary to determinepatien t infection status. Positiv e results do not rule out bacterial infection or co -infection with other viru ses. Negative result s do not preclude SARS-C oV-2 infection andsh ould not be used as the nancy e basis for patient managementdecis ions. Negative result s must be combined with otherclinical observations, p atient history, and epidemiological information . Detection of SARS-CoV-2 RNA may be affe cted bysample collec tion methods, storag e conditions, and /or stageof infection. Stacey l RNA mutations, vacc inations, antiviraltherap eutics, antibiotics, chemotherapeuti c orimmunosuppres amira drugs have not been e valuated for effectson d etection. Results are for the identification of SARS-CoV-2 RNA usingthe Bernard M2000 Sy stem under the FDA Emergen cy UseAuthorizatio n. The testing is perf ormed by personneltraine d in the procedures for the Bernard M2000 molecular diagnostic SARS-CoV-2 assa y in vitro. Novel Coronavirus 2018 [id number] 14:51:00 Test Item Value Reference Range Interpretation Comments Novel Coronavirus Negative Negative Positive r esults are 2019 Inhouse (test indicativ e of the presence code = COVNONPUI) ofSARS-CoV -2 RNA, clinical correlation wit h patient historyand othe r diagnostic info rmation is necessary to determinepatien t infection status. Positiv e results do not rule out bacterial infection or co -infection with other viru ses. Negative result s do not preclude SARS-C oV-2 infection andsh ould not be used as the nancy e basis for patient managementdecis ions. Negative result s must be combined with otherclinical observations, p atient history, and epidemiological information . Detection of SARS-CoV-2 RNA may be affe cted bysample collec tion methods, storag e conditions, and /or stageof infection. Stacey l RNA mutations, vacc inations, antiviraltherap eutics, antibiotics, chemotherapeuti c orimmunosuppres amira drugs have not been e valuated for effectson d etection. Results are for the identification of SARS-CoV-2 RNA usingthe Bernard M2000 Sy stem under the FDA Emergen cy UseAuthorizatio n. The testing is perf ormed by personneltraine d in the procedures for the Bernard M2000 molecular diagnostic SARS-CoV-2 assa y in vitro. COMPREHENSIVE METABOLIC [id number] 16:08:00 Test Item Value Reference Range Interpretation Comments SODIUM (test code = NA) 136 mmol/L 136-145 N POTASSIUM (test code = 3.9 mmol/L 3.5-5.1 N K) CHLORIDE (test code = 98.0 mmol/L 98-107 N CL) CARBON DIOXIDE (test 25.9 mmol/L 21-32 N code = CO2) GLUCOSE (test code = 85 mg/dL 70-110 N GLU) BLOOD UREA NITROGEN 27 mg/dL 7-18 H (test code = BUN) GLOMERULAR FILTRATION 46.0 >60 Unit o f measure: RATE (test code = GFR) mL/mi n/1.73 [id number] Range:Healthy Adults >90 mL/min/1.73 m2 For Chronic Kidney Disease: St age II Mild Decrease in GFR 60-90 St age III Moderate Decrease in GFR 30-59 Stage IV Severe Decre ase in GFR 15- 29 Stage V Kidney Failure <15 CREATININE (test code = 1.18 mg/dL 0.55-1.30 N CREAT) TOTAL PROTEIN (test 7.4 g/dL 6.4-8.2 N code = PROT) ALBUMIN (test code = 4.1 g/dL 3.4-5.0 N ALB) GLOBULIN (test code = 3.3 g/dL 2.2-4.2 N GLOB) ALBUMIN/GLOBULIN RATIO 1.2 0.7-2.0 N (test code = A/G) CALCIUM (test code = 9.0 mg/dL 8.2-10.1 N CA) BILIRUBIN TOTAL (test 0.40 mg/dL 0.2-1.00 N code = BILT) SGOT/AST (test code = 18.0 U/L 15-37 N AST) SGPT/ALT (test code = 32.0 U/L 12-78 N Please note new ALT) normal range. ALKALINE PHOSPHATASE 92 U/L 46-116 N TOTAL (test code = ALKP) CBC W/AUTO [id number] 15:43:00 Test Item Value Reference Range Interpretation Comments WHITE BLOOD CELL (test code = WBC) 6.0 K/mm3 5.8-11.0 N RED BLOOD CELL (test code = RBC) 4.04 M/mm3 4.2-5.4 L HEMOGLOBIN (test code = HGB) 12.1 g/dL 12-16 N HEMATOCRIT (test code = HCT) 36.7 % 37-47 L MEAN CELL VOLUME (test code = MCV) 91 fL 80-98 N MEAN CELL HGB (test code = MCH) 30.0 pg 27-34 N MEAN CELL HGB CONCENTRATION (test 33.0 g/dL 30.8-34.1 N code = MCHC) RED CELL DISTRIBUTION WIDTH (test 15.3 % 11-16 N code = RDW) PLT (test code = PLT) 212 K/mm3 130-400 N MEAN PLATELET VOLUME (test code = 9.6 fL 8.9-12.1 N MPV) NEUTROPHIL % (test code = NT%) 76.1 % 45-70 H LYMPHOCYTE % (test code = LY%) 16.3 % 20-40 L MONOCYTE % (test code = MO%) 6.8 % 3-10 N EOSINOPHIL % (test code = EO%) 0.3 % 1-5 L BASOPHIL % (test code = BA%) 0.3 % 0.0-1.1 N NEUTROPHIL # (test code = NT#) 4.59 K/mm3 2.00-7.50 N LYMPHOCYTE # (test code = LY#) 0.98 K/mm3 1.50-4.00 L MONOCYTE # (test code = MO#) 0.41 K/mm3 0.2-0.8 N EOSINOPHIL # (test code = EO#) 0.02 K/mm3 0.04-0.4 L BASOPHIL # (test code = BA#) 0.02 K/mm3 0.02-0.10 N MANUAL DIFF REQUIRED (test code = NO MANUAL DIFF MDIFF) NUCLEATED RED BLOOD CELL (test 0 % 0-0 N code = NRBC) - XR CHEST 2 [id number] 15:08:00 [facility] : 1955 Sex: F Patient Name: ZULY IZAGUIRRE Unit No: [id number] EXAMS: CPT CODE: [id number] XR CHEST 2 V 12560 EXAM: Two view chest. EXAM DATE: March 17, 2014 CLINICALHISTORY: Preop COMPARISON: None Cardiomediastinal silhouette is within normal limits. Thelungs appears free of acute disease. Osseous structures demonstrate mild degenerative changes. IMPRESSION: No evidence of acute lung disease. at 1508 Reported and signed by: Nalini Dye MD CC: Technologist: Cris Fernando, Trnscrbd D/ (1502) [email or web address] Orig Print D/T: S: 03/17/2014 (6366) [facility] [place] NAME: MIKE IZAGUIRRENICKOLAS DIANE Radiology Department PHYS: Robert Guerra MD [address] : 1955 AGE: 59 SEX: F [place], [place] [address] LOC: UN PHONE #: [phone] EXAM DATE: 03/17/2014 STATUS: [facility] FAX #: [phone] RAD NO: [id number] Page 1 Signed Report- US PELVIS [id number] 13:49:00[facility]ame: ZULY IZAGUIRRE LEONARDO : 1955 Sex: F Patient Name: ZULY IZAGUIRRE Unit No: [id number] EXAMS: CPT CODE: [id number] US TRANSVAGINAL W/PELVIS [id number] US PELVIS COMPLETE 97076 EXAMINATION: Pelvic ultrasound 11/12/08 FINDINGS: Transabdominal and transvaginal pelvic ultrasound was performed. The uterus measures 81 x 40 x 44 mm. The endometrium is 5 mm in AP diameter. Uterine leiomyomata are evident as follows: 1. Posterior subserosal 19 x 14 x 19 mm. 2. Anterior internal 6 x 6 x 8 mm. The right ovary measures 12 x 9 x 14 mm. It is of normal size and sonographic appearance. The left ovary is visualized transabdominally only but is of normal appearance. It measures 22 x 10 x 11 mm. No free fluid is present in the pelvis. IMPRESSION: 1. Two small fibroids. 2. No other sonographic abnormalities in the pelvis. ElectronicallySigned by Cary Abraham MD on 04/05/2008 at 1756 Reported and signed by: Cary Abraham MD CC: Britney Lange MD Technologist: Mckayla Giron Probe: Trnscrbd D/ (0471) [email or web address] Orig Print D/T: S: 04/05/2008 (1823) [facility] [place] NAME: ZULY IZAGUIRRE LEONARDO Radiology Department PHYS: Britney Rojas [address] : 1955 AGE: 53 SEX: F [place] [address] LOC: UNcVidya PHONE #: [phone] EXAM DATE: 03/30/2008 STATUS: DEP CLI FAX #: [phone] RAD NO: [id number] Page 1 Signed Report Patient Name: ZULY IZAGUIRRE Unit No: [id number] EXAMS: CPT CODE: [id number] US TRANSVAGINAL W/PELVIS [id number] US PELVIS COMPLETE 76785 <Continued> [facility] [place] NAME: ZULY IZAGUIRRE LEONARDO Radiology Department PHYS: Britney Rojas [address] : 1954 AGE: 53 SEX: F [place], [place] [address] LOC: UNK PHONE #: [phone] EXAM DATE: 03/30/2008 STATUS: DEP CLI FAX #: [phone] RAD NO: [id number] Page 2 Signed Report- US TRANSVAGINAL W/[id number] 13:49:00 [facility]Y [facility]ZAG[facility]IRRE : 1955 Sex: F Patient Name: ZULY IZAGUIRRE Unit No: [id number] EXAMS: CPT CODE: [id number] US TRANSVAGINAL W/PELVIS [id number] US PELVIS COMPLETE 08724 EXAMINATION: Pelvic ultrasound 03/30/08 FINDINGS: Transabdominal and transvaginal pelvic ultrasound was performed. The uterus measures 81 x 40 x 44 mm. The endometrium is 5 mm in AP diameter. Uterine leiomyomata are evident as follows: 1. Posterior subserosal 19 x 14 x 19 mm. 2. Anterior internal 6 x 6 x 8 mm. The right ovary measures 12 x 9 x 14 mm. It is of normal size and sonographic appearance. The left ovary is visualized transabdominally only but is of normal appearance. It measures 22 x 10 x 11 mm. No free fluid is present in the pelvis. IMPRESSION: 1. Two small fibroids. 2. No other sonographic abnormalities in the pelvis. ElectronicallySigned by Cary Abraham MD on 04/05/2008 at 1754 Reported and signed by: Cary Abraham MD CC: Britney Lange MD Technologist: Mckayla Giron Probe: Trnscrbd D/ (4824) [email or web address] Orig Print D/T: S: 04/05/2008 (3254) [facility] [place] NAME: ZULY TURK Radiology Department PHYS: Britney Rojas [address] : 1955 AGE: 53 SEX: F [place], [place] [address] LOC: UNK PHONE #: [phone] EXAM DATE: 03/30/2008 STATUS: DEP CLI FAX #: [phone] RAD NO: [id number] Page 1 Signed Report Patient Name: ZULY IZAGUIRRE Unit No: [id number] EXAMS: CPT CODE: [id number] US TRANSVAGINAL W/PELVIS 75570 [id number] US PELVIS COMPLETE [id number] <Continued> [facility] [place] NAME: ZULY IZAGUIRRE Radiology Department PHYS: Britney Rojas [address] : 1954 AGE: 53 SEX: F [place], [place] [address] LOC: UNK PHONE #: [phone] EXAM DATE: 03/30/2008 STATUS: DEP CLI FAX #: [phone] RAD NO: [id number] Page 2 Signed Report- USG NEEDLE [id number] 00:00:00 [facility] : 1955 Sex: F Patient Name: ZULY IZAGUIRRE Unit No: [id number] EXAMS: CPT CODE: [id number] USG NEEDLE PLACEMENT 31523 RIGHT BREAST ULTRASOUND GUIDED NEEDLE LOCALIZATION: Findings: The mass at the 10 o'clock position of the right breast is again visualized sonographically. Following routine prep and infiltration of approximately 2 cc of 1% lidocaine for local anesthesia, a Kopan's needle was placed through the mass under ultrasound guidance. The wire was left in appropriate position. A BB marker was then placed on the skin directly above the location of the mass. The patienttolerated the procedure without incident. " Manually signed by Cary Abraham M.D. Reported and signed by: Cray Abraham M.D. CC: Wolf Caballero MD Technologist: MARIAH BERKOWITZ Probe: Trnscrbd D/ (1216) F.RAD.BSB Advanced To Signed Dt/Tm/User: 06/07/04 (1539) F.RAD.MTC Orig Print D/T: (1450) S: [facility] [place] NAME: ZULY IZAGUIRRE LEONARDO Radiology Department PHYS: Wofl Marks MD[address] : 1955 AGE: 49 SEX: F [place] [address] LOC: [facility] PHONE #: [phone] EXAM DATE: 06/06/2004 STATUS: [facility] FAX #: [phone] RAD NO: [id number] Page 1 Signed Report Patient Name: ZULY IZAGUIRRE Unit No: [id number] EXAMS: CPT CODE: [id number] NEEDLE PLACEMENT 76181 <Continued> [facility] [place] NAME: IZAGUIRRE,ZULY DIANE Radiology Department PHYS: Wolf Marks MD [address] : 1955 AGE: 49 SEX: F [place] [address] LOC: [employer] PHONE #: [phone] EXAM DATE: 06/06/2004 STATUS: UNK FAX #: [phone] RAD NO: [id number] Page 2 Signed Report- NM LYMPH NODE [id number] 00:00:00 [facility] ZULY IZAGUIRRE : 1955 Sex: F Patient Name: ZULY IZAGUIRRE Unit No: [id number] EXAMS: CPT CODE: [id number] NM LYMPH NODE IMAGING 75572 Clinical history: Right breast cancer. Technique: 550 microcuriesof filtered Tc 99m sulfur colloid was injected in divided doses at the tumor site and subsequent sequential static imaging was performed through 75 minutes. I see no focal activity outside of theinjection site to suggest a sentinel node which will be further evaluated intraoperatively with theNeoprobe. " Manually signed by MOISES ALONSO M.D. Reported and signed by: MOISES ALONSO M.D. CC: Wolf Caballero MD Technologist: Octaviano Medellin Trnscrbd D/ (1706) F.RAD.BSB/F.RAD.BSB Advanced To Signed Date/Time/User: 06/08/04 (1253) F.RAD.BSB Orig Print D/T: S: 06/08/2004 (1253) [facility] [place] NAME: ZULY IZAGUIRRE Radiology Department PHYS: Wolf Marks MD [address] : 1955 AGE: 49 SEX: F [place], [place] [address] LOC: [facility] PHONE #: [phone] EXAM DATE: 06/06/2004 STATUS: [facility] FAX #: [phone] RAD NO: [id number] Page 1 SignedReport- USG NEEDLE [id number] [facility]00[facility] 1955 Sex: F Patient Name: ZULY IZAGUIRRE Unit No: [id number] Report Has Been Amended EXAMS: CPT CODE: [id number] USG NEEDLE PLACEMENT 22485 Addendum - 05/31/2004 SIGNED 06/06/2004 ADDENDUM: [id number] US/BXG ADDENDUM 05/31/04: Pathologic diagnosis is infiltrating ductal carcinoma (moderately differentiated). I discussed the results with Dr. Caballero and faxed him a copy of the pathology report. Manually signed by Cary Abraham M.D. Reported and signedby: Cary Abraham M.D. Transcribed: 05/31/2004 (1627) SVITLANA Report Findings: Informed Consent was obtained following explanation of the procedure, its limitations and post biopsycare. Under ultrasound guidance, after injection of a local anesthetic, using a 16 core biopsy needle, multiple specimens were obtained from a mass in the outer right breast. IMPRESSION: Incomplete pending pathology results. " Manually signed by Juan Jose Leo M.D. Reported and signed by: Juan Jose Leo M.D. CC: Wolf Caballero MD Technologist: MARIAH BERKOWITZ Probe: Trnscrbd D/ (1137) AWILDA/SVITLANA Advanced To Signed Dt/Tm/User: 05/30/04 (1313) TRICIABSB Orig Print D/T: (1142) S: [facility] [place] NAME: ZULY IZAGUIRRE Radiology Department PHYS: Wolf Marks MD [address] : 1955 AGE: 49 SEX: F [place], [place] [address] LOC: UNK PHONE #: [phone] EXAM DATE: 05/29/2004 STATUS: UNK FAX #:[phone] RAD NO: [id number] Page 1 Signed Report Patient Name: ZULY IZAGUIRRE Unit No: [id number] Report Has Been Amended EXAMS: CPT CODE: [id number] USG NEEDLE PLACEMENT 47933 <Continued> [facility] [place] NAME: ZULY IZAGUIRRE Radiology Department PHYS: Wolf Marks MD [address] : 1955 AGE: 49 SEX: F [place], [place] [address] LOC: [employer] PHONE #: [phone] EXAM DATE: 05/29/2004 STATUS: [employer] FAX #: [phone] RAD NO: [id number] Page 2 Signed Report- US BREAST [id number] 00:00:00 [facility] ZULY IZAGUIRRE : 1955 Sex: F Patient Name: ZULY IZAGUIRRE Unit No: [id number] EXAMS: CPT CODE: [id number] US BREAST UNILATERAL 62067 RIGHT BREAST ULTRASOUND: CLINICAL HISTORY: Mass upper outer right breast noted on a mammogram performed at an outside institution. FINDINGS: At the 10 o'clock position 3 cm from the areola, corresponding to the mammographically identified mass, there is noted to be a solid irregular mass measuring 10 x 9 x 10 mm. The margins of the mass are ill defined. Sonographically the mass appears highly suspicious. IMPRESSION: ACR Category 5 - Highly suggestive of malignancy - Appropriate Action Should be Taken. RECOMMENDATIONS: Surgical consultation. Not all breast cancers are detected by mammography/sonography and a negative report should not delay biopsy if a dominant or clinically suspicious mass is present. " Manually signed by Juan Jose Leo M.D. Reported and signed by: Juan Jose Leo M.D. CC:Wolf Caballero MD Technologist: Lola Bhatt Probe: Trnscrbd D/ (1636) F.RAD.CTM Advanced To Signed Dt/Tm/User: 05/28/04 (2017) F.RAD.CTM Orig Print D/T: (1708) S: [facility] NAME: ZULY IZAGUIRRE Radiology Department PHYS: Wolf Marks MD [address] : 1955 AGE: 49 SEX: F [place], [place] [address] LOC: UNK PHONE #: [phone] EXAM DATE: 05/28/2004 STATUS: UNK FAX #: [phone] RAD NO: [id number] Page 1 Signed Report Patient Name: IZAGUIRREAYLEEN Unit No: [id number] EXAMS: CPTCODE: [id number] US BREAST UNILATERAL 82043 <Continued> [facility] [place] NAME: ZULY IZAGUIRRE Radiology Department PHYS: Wolf Marks MD [address] : 1955 AGE: 49 SEX: F [place], [place] [address] LOC: UNK PHONE #: [phone] EXAM DATE: 05/28/2004 STATUS: UNK FAX #: [phone] RAD NO: [id number] Page 2 Signed Report
[2020-10-26 08:02] LABS: Absolute Lymphocytes (CBC) 0.7 K/uL (0.7-4.9); Basophils % 0.9 % (0-1.3); Hematocrit 21.6 % (36.0-45.0); Lymphocytes % 23.4 % (15.3-44.8); RBC Red Blood Cell Count 2.44 M/uL (3.86-4.86)
[2020-10-26 08:25] LABS: Potassium 3.5 mmol/L (3.5-5.1)
--- NOTE | 2020-10-26 08:37 | EDPHYS ---
Physician Documentation [facility] Name: Julisa Santos Age: 65 yrs Sex: Female : 1955 Arrival Date: 10/26/2020 Time: 07:07 Bed 15 Private MD: ED Physician Jonathan Grayson HPI: 10/26 08:25 This 65 yrs old Female presents to ER via Wheelchair with complaints of Low kdr hemoglobin. 08:25 The patient had a blood draw last night by [facility] and was informed that her blood kdr work as abnormal and to come to the ED. She had no other c/o at this time. Onset: The symptoms/episode began/occurred gradually, at an unknown time. Severity of symptoms: At their worst the symptoms were moderate in the emergency department the symptoms are unchanged. The patient has not experienced similar symptoms in the past. The patient has not recently seen a physician. Historical: - Allergies: 07:15 PENICILLINS; tw2 07:15 Codeine; tw2 - Home Meds: 07:15 Cogentin Oral 1 mg nightly [Active]; lisinopril 10 mg oral tab 1 tab once daily tw2 [Active]; Depakote ER 500 mg Oral Tb24 2 tabs once daily [Active]; Phenergan Oral [Active]; lamotrigine 25 mg oral tab 2 tabs 2 times per day [Active]; aspirin 81 mg Oral TbEC 1 tab 3 times a day [Active]; scopolamine transdermal transdermal [Active]; 10:51 tramadol 50 mg Oral tab 1 tab every 4-6 hours [Active]; gabapentin 100 mg oral cap tr6 daily [Active]; levothyroxine 125 mcg tab 1 tab once daily [Active]; diazepam 2 mg Oral tab every 6 hours [Active]; spironolactone 25 mg Oral tab 1 tab once daily [Active]; Lasix 40 mg Oral tab once daily [Active]; Protonix 40 mg Oral grps once daily [Active]; rosuvastatin 5 mg oral tab once daily [Active]; Zyprexa 10 mg Oral tab 1 tab once daily [Active]; Zyprexa 20 mg Oral tab nightly [Active]; meropenem 1 gram intravenous solr every 8 hours [Active]; - PMHx: 07:15 Cancer, Breast; GERD; Hypertension; Bipolar disorder; tw2 - PSHx: 07:15 Appendectomy; Cholecystectomy; Knee surgery; ; breast cancer surg; Left broken tw2 femur; - Immunization history:: Adult Immunizations Client reports having NOT received the Covid vaccine. had Covid May 2020. - Social history:: Smoking status: . ROS: 08:25 Constitutional: Negative for fever, chills, and weight loss, Eyes: Negative for injury, kdr pain, redness, and discharge, ENT: Negative for injury, pain, and discharge, Neck: Negative for injury, pain, and swelling, Cardiovascular: Negative for chest pain, palpitations, and edema, Respiratory: Negative for shortness of breath, cough, wheezing, and pleuritic chest pain, Abdomen/GI: Negative for abdominal pain, nausea, vomiting, diarrhea, and constipation, Back: Negative for injury and pain, : Negative for injury, bleeding, discharge, and swelling, Skin: Negative for injury, rash, and discoloration, Neuro: Negative for headache, weakness, numbness, tingling, and seizure activity. Psych: Negative for depression, anxiety, suicide ideation, homicidal ideation, and hallucinations, Allergy/Immunology: Negative for hives, rash, and allergies, Endocrine: Negative for neck swelling, polydipsia, polyuria, polyphagia, and marked weight changes, Hematologic/Lymphatic: Negative for swollen nodes, abnormal bleeding, and unusual bruising. 08:25 MS/extremity: Positive for injury or acute deformity, swelling. Exam: 08:25 Constitutional: This is a well developed, well nourished patient who is awake, alert, kdr and in no acute distress. Head/Face: Normocephalic, atraumatic. Eyes: Pupils equal round and reactive to light, extra-ocular motions intact. Lids and lashes normal. Conjunctiva and sclera are non-icteric and not injected. Cornea within normal limits. Periorbital areas with no swelling, redness, or edema. Neck: Trachea midline, no thyromegaly or masses palpated, and no cervical lymphadenopathy. Supple, full range of motion without nuchal rigidity, or vertebral point tenderness. No Meningismus. Chest/axilla: Normal chest wall appearance and motion. Nontender with no deformity. No lesions are appreciated. Cardiovascular: Regular rate and rhythm with a normal S1 and S2. No gallops, murmurs, or rubs. Normal PMI, no JVD. No pulse deficits. Respiratory: Lungs have equal breath sounds bilaterally, clear to auscultation and percussion. No rales, rhonchi or wheezes noted. No increased work of breathing, no retractions or nasal flaring. Abdomen/GI: Soft, non-tender, with normal bowel sounds. No distension or tympany. No guarding or rebound. No evidence of tenderness throughout. Back: No spinal tenderness. No costovertebral tenderness. Full range of motion. Skin: Warm, dry with normal turgor. Normal color with no rashes, no lesions, and no evidence of cellulitis. Neuro: Awake and alert, GCS 15, oriented to person, place, time, and situation. Cranial nerves II-XII grossly intact. Motor strength 5/5 in all extremities. Sensory grossly intact. Cerebellar exam normal. Normal gait. 08:25 Musculoskeletal/extremity: The patient has no focal c/o at this time. She does have swelling to the left lower extremity where she has had prior ORIF of a femur fracture that has subsequently become infected resulting in a knee replacement and now abx via pic line TID. Vital Signs: 07:09 BP 151 / 95; Pulse 105; Resp 18; Temp 98.2; Pulse Ox 100% on R/A; Weight 113.4 kg; tw2 08:45 BP 135 / 54; Pulse 85; Resp 18; Pulse Ox 100% on R/A; tr6 MDM: 08:25 Data reviewed: vital signs, nurses notes, lab test result(s), radiologic studies. kdr Counseling: I had a detailed discussion with the patient and/or guardian regarding: the historical points, exam findings, and any diagnostic results supporting the discharge/admit diagnosis, lab results, radiology results, the need for further work-up and treatment in the hospital. Physician consultation: Doe Keenan MD regarding consult, patient's condition, need to come to ED to see patient, and will see patient in inpatient room, later today. Admission orders: after a detailed discussion of the patient's condition and case, the admit orders are written by me. 08:36 Patient medically screened. kdr 10/26 07:16 Order name: CBC with Diff kdr 10/26 07:16 Order name: Chem 7; Complete Time: 09:17 kdr 10/26 07:16 Order name: Type And Screen kdr 10/26 08:29 Order name: Bb Add On bd 10/26 08:47 Order name: Packed RBC Leukored EDMS 10/26 09:08 Order name: ABO/RH no charge; Complete Time: 09:17 EDMS 10/26 09:17 Order name: COVID-19 : Document "Date of Symptom Onset" if Symptomatic. kdr 10/26 09:18 Order name: CORONAVIRUS EDMS 10/26 09:25 Order name: Basic Metabolic Panel EDMS 10/26 09:25 Order name: Basic Metabolic Panel EDMS 10/26 09:26 Order name: Hemoglobin; Complete Time: 14:16 EDMS 10/26 08:44 Order name: US Extremity Venous Unilateral Ltd; Complete Time: 14:16 kdr 10/26 09:26 Order name: Regular EDMS 10/26 09:26 Order name: CBC with Automated Diff EDMS 10/26 09:26 Order name: CBC with Automated Diff EDMS 10/26 11:14 Order name: SARS-COV-2 RT PCR; Complete Time: 14:16 EDMS Administered Medications: 12:01 Drug: Depakene (valproic acid) 500 mg Route: PO; tr6 12:01 Drug: Meropenem 1 grams {Note: in PICC line.} Route: IV; Rate: calculated rate; Site: tr6 left upper arm; Disposition: 10/26/20 08:36 Hospitalization ordered by Deo Keenan for Inpatient Admission. Preliminary diagnosis are Weakness, Anemia, unspecified. - Bed requested for Telemetry/MedSurg (observation). - Status is Inpatient Admission. tr6 - Condition is Fair. - Problem is new. - Symptoms have improved. Signatures: Dispatcher [employer] EDMS Jonathan Grayson MD MD kdr Kristie Isbell, LISA GONZALEZ iw Laura Nascimento RN RN tw2 Shy Farmer RN RN tr6 Corrections: (The following items were deleted from the chart) 08:47 08:22 PACKED RBC LEUKORED -1+BB.LAB.BRZ ordered. EDCO EDMS 08:47 08:22 ABO/RH typing ordered. EDCO EDMS 08:47 08:22 Antibody Screen ordered. EDCO EDMS 10:51 07:15 Home Meds: tramadol 50 mg Oral tab 1 tab once daily; tw2 tr6 12:04 08:36 Hospitalization Ordered by Doe Keenan MD for Inpatient Admission. Preliminary iw diagnosis is Weakness; Anemia, unspecified. Bed requested for Telemetry/MedSurg (observation). Status is Inpatient Admission. Condition is Fair. Problem is new. Symptoms have improved. kdr 12:49 12:04 10/26/2020 08:36 Hospitalization Ordered by Doe Keenan MD for Inpatient tr6 Admission. Preliminary diagnosis is Weakness; Anemia, unspecified. Bed requested for Telemetry/MedSurg (observation). Status is Inpatient Admission. Condition is Fair. Problem is new. Symptoms have improved. iw
--- NOTE | 2020-10-26 08:37 | ER ---
Nurse's Notes [facility] Name: Julisa Santos Age: 65 yrs Sex: Female : 1955 Arrival Date: 10/26/2020 Time: 07:07 Bed 15 Private MD: Diagnosis: Weakness;Anemia, unspecified Presentation: 10/26 07:09 Chief complaint: Patient states: the nurse from [facility] sent her here because her Hgb tw2 last night was low, 6.1, pt denies symptoms. Coronavirus screen: At this time, the client does not indicate any symptoms associated with coronavirus-19. Ebola Screen: Patient denies travel to an Ebola-affected area in the 21 days before illness onset. Initial Sepsis Screen: Does the patient meet any 2 criteria? HR > 90 bpm. Does the patient have a suspected source of infection? No. Patient's initial sepsis screen is negative. Risk Assessment: Do you want to hurt yourself or someone else? Patient reports no desire to harm self or others. Onset of symptoms was October 26, 2020. 07:09 Method Of Arrival: Wheelchair tw2 07:09 Acuity: ANGELO 3 tw2 07:42 Note pt arrived in her personal wheelchair. tw2 Triage Assessment: 07:15 General: Appears in no apparent distress. obese, well groomed, Behavior is calm, tw2 cooperative, appropriate for age. Pain: Denies pain. 07:40 Derm: Reports "i caught a super bug in my LEFT knee after i broke my femur and they did tw2 surgery", redness and minimal amount of yellow drainage noted. pts spouse states "she is also on 3 antibiotics for that infection i forgot to mention when we were doing her medications". Historical: - Allergies: 07:15 PENICILLINS; tw2 07:15 Codeine; tw2 - Home Meds: 07:15 Cogentin Oral 1 mg nightly [Active]; lisinopril 10 mg oral tab 1 tab once daily tw2 [Active]; Depakote ER 500 mg Oral Tb24 2 tabs once daily [Active]; Phenergan Oral [Active]; lamotrigine 25 mg oral tab 2 tabs 2 times per day [Active]; aspirin 81 mg Oral TbEC 1 tab 3 times a day [Active]; scopolamine transdermal transdermal [Active]; 10:51 tramadol 50 mg Oral tab 1 tab every 4-6 hours [Active]; gabapentin 100 mg oral cap tr6 daily [Active]; levothyroxine 125 mcg tab 1 tab once daily [Active]; diazepam 2 mg Oral tab every 6 hours [Active]; spironolactone 25 mg Oral tab 1 tab once daily [Active]; Lasix 40 mg Oral tab once daily [Active]; Protonix 40 mg Oral grps once daily [Active]; rosuvastatin 5 mg oral tab once daily [Active]; Zyprexa 10 mg Oral tab 1 tab once daily [Active]; Zyprexa 20 mg Oral tab nightly [Active]; meropenem 1 gram intravenous solr every 8 hours [Active]; - PMHx: 07:15 Cancer, Breast; GERD; Hypertension; Bipolar disorder; tw2 - PSHx: 07:15 Appendectomy; Cholecystectomy; Knee surgery; ; breast cancer surg; Left broken tw2 femur; - Immunization history:: Adult Immunizations Client reports having NOT received the Covid vaccine. had Covid May 2020. - Social history:: Smoking status: . Screenin:42 Abuse screen: Denies threats or abuse. Nutritional screening: No deficits noted. tw2 Tuberculosis screening: No symptoms or risk factors identified. Fall Risk Secondary diagnosis (15 points) impaired mobility. Assessment: 08:05 General: Appears in no apparent distress. comfortable, Behavior is calm, cooperative, tr6 appropriate for age. Pain: Denies pain. Neuro: No deficits noted. Cardiovascular: No deficits noted. Respiratory: No deficits noted. GI: No deficits noted. : No deficits noted. EENT: No deficits noted. Derm: No deficits noted. Musculoskeletal: Reports. 08:56 Reassessment: pt transferred to US. tr6 Vital Signs: 07:09 BP 151 / 95; Pulse 105; Resp 18; Temp 98.2; Pulse Ox 100% on R/A; Weight 113.4 kg; tw2 08:45 BP 135 / 54; Pulse 85; Resp 18; Pulse Ox 100% on R/A; tr6 ED Course: 07:07 Patient arrived in ED. am4 07:10 Triage completed. tw2 07:15 Arm band placed on. tw2 07:16 Jonathan Grayson MD is Attending Physician. kdr 07:16 Bed in low position. Call light in reach. Side rails up X 1. Adult w/ patient. Warm tw2 blanket given. 07:53 Shy Farmer, RN is Primary Nurse. tr6 07:53 Type And Screen Sent. tr6 07:53 Chem 7 Sent. tr6 07:53 CBC with Diff Sent. tr6 08:35 Doe Keenan MD is Hospitalizing Provider. kdr 09:40 US Extremity Venous Unilateral Ltd In Process Unspecified. EDMS Administered Medications: 12:01 Drug: Depakene (valproic acid) 500 mg Route: PO; tr6 12:01 Drug: Meropenem 1 grams {Note: in PICC line.} Route: IV; Rate: calculated rate; Site: tr6 left upper arm; Outcome: 08:36 Decision to Hospitalize by Provider. kdr 12:49 Patient left the ED. tr6 Signatures: Dispatcher [employer] EDMS Jonathan Grayson MD MD kdr Laura Nascimento RN RN tw2 [facility] Shy Farmer, LISA RN tr6 Corrections: (The following items were deleted from the chart) 07:41 07:15 General: Appears in no apparent distress. obese, well groomed, Behavior is calm, tw2 cooperative, appropriate for age, tw2 10:51 07:15 Home Meds: tramadol 50 mg Oral tab 1 tab once daily; tw2 tr6
[2020-10-26] MEDS ORDERED: ONDANSETRON 4 MG/2 ML VIAL IV PRN (09:23)
[2020-10-26] MEDS ORDERED: ACETAMINOPHEN 500 MG TAB PO PRN (09:23)
--- NOTE | 2020-10-26 10:01 | RAD REPORT ---
EXAM DESCRIPTION: US - Extremity Venous Uni Ltd - 10/26/2020 9:41 am CLINICAL HISTORY: SWELLING Leg swelling and edema. COMPARISON: EXTREMITY NONVASCULAR dated 02/24/2014EXTREMITY NONVASCULAR dated 02/24/2014 FINDINGS: Left lower extremity venous system was interrogated with Doppler technique. Normal flow, c ompressibility and augmentation was noted. There is no DVT present. IMPRESSION: No evidence of left lower extremity deep venous thrombosis.
[2020-10-26] MEDS ORDERED: DIVALPROEX DR 250 MG TAB PO ONE (12:12)
[2020-10-26] MEDS ORDERED: Meropenem 1 GM/100 ML BAG ONE (12:12)
[2020-10-26] MEDS ORDERED: OLANZapine 10 MG TABLET PO ONE (13:00)
[2020-10-26] MEDS ORDERED: lamoTRIgine 100 MG TAB PO ONE (13:00)
[2020-10-26] MEDS ORDERED: lamoTRIgine 25 MG TAB PO ONE (13:00)
[2020-10-26] MEDS ORDERED: BISACODYL 10 MG RECTAL SUPP PR ONE (13:29)
[2020-10-26] MEDS ORDERED: NA CHLORIDE 0.9% 250 ML ONE ×2 (14:43→23:32)
[2020-10-26 19:48] VITALS: BMI 43.7
[2020-10-26 22:26] LABS: Hematocrit 24.2 % (36.0-45.0)
[2020-10-26] MEDS ORDERED: Levofloxacin 750mg IV 750 MG/150 ML BAG IV ONE (23:04)
[2020-10-27] MEDS ORDERED: NA CHLORIDE 0.9% 250 ML ONE (01:29)
[2020-10-27 04:37] VITALS: O2SAT 95
[2020-10-27] MEDS ORDERED: LEVOTHYROXINE SOD 0.125 MG TAB PO SCH (06:30)
[2020-10-27] MEDS ORDERED: PANTOPRAZOLE 40MG TABLET PO SCH (06:30)
[2020-10-27 06:45] LABS: Absolute Lymphocytes (CBC) 1.1 K/uL (0.7-4.9); Basophils % 0.4 % (0-1.3); Hematocrit 26.5 % (36.0-45.0); Lymphocytes % 28.7 % (15.3-44.8); MPV 7.3 fL (7.6-11.3); RBC Red Blood Cell Count 3.05 M/uL (3.86-4.86)
[2020-10-27 06:56] LABS: Potassium 3.7 mmol/L (3.5-5.1)
[2020-10-27 09:00] VITALS: TEMP 97.8
[2020-10-27] MEDS ORDERED: DIVALPROEX ER 250 MG TAB PO SCH (09:00)
[2020-10-27] MEDS ORDERED: lamoTRIgine 25 MG TAB PO SCH ×2 (09:00)
[2020-10-27] MEDS ORDERED: lisinopriL 10 MG TAB PO SCH (09:00)
[2020-10-27] MEDS ORDERED: Meropenem 1 GM/100 ML BAG IV SCH (09:00)
[2020-10-27] MEDS ORDERED: Levofloxacin 750mg IV 750 MG/150 ML BAG IV ONE (09:00)
[2020-10-27] MEDS ORDERED: FUROSEMIDE 40 MG TABLET PO SCH (09:00)
[2020-10-27] MEDS ORDERED: GABAPENTIN 100 MG CAP PO SCH (09:00)
[2020-10-27] MEDS ORDERED: OLANZapine 10 MG TABLET PO SCH ×2 (09:00→21:00)
[2020-10-27] MEDS ORDERED: SPIRONOLACTONE 25 MG TABLET PO SCH (09:00)
[2020-10-27] MEDS ORDERED: lamoTRIgine 100 MG TAB PO SCH (09:00)
[2020-10-27 09:28] VITALS: BP 197/90
[2020-10-27] MEDS ORDERED: BENZTROPINE 1 MG TAB PO SCH (21:00)
[2020-10-27] MEDS ORDERED: QUETIAPINE 25 MG TAB PO SCH (21:00)
[2020-10-27] MEDS ORDERED: Levofloxacin 750mg IV 750 MG/150 ML BAG IV SCH (22:00)
--- NOTE | 2020-10-28 03:48 | HP ---
Date of Admission: 10/26/2020 The patient states she feels considerably better since she has received 2 units of blood. Her hemogl obin is now in the 8.8 range. Remainder of her chemistries are normal. Still has some slight draina ge, bloody from the lower portion of the incision of the knee replacement, felt well enough to be dis charged to go to her appointment with the trauma surgeon for evaluation of the repair of the femur, s o at this stage, she may be felt to be mobilized. She is to receive a CBC in a couple days to see In fectious Disease and the knee replacement with orthopedic surgeon in the coming weeks. HR/MODL Voice ID: [id number]
--- NOTE | 2020-10-28 03:48 | HP ---
Date of Admission: 10/26/2020 Entrance Complaint: Anemia. History Of Present Illness: The patient presented to the emergency room as she was told by home heal th that her blood count dropped into the 6 range. The patient states it was around 9 on the prior te sting. The patient has had a rather complex history over the past few months. She started with a kn ee replacement which shortly thereafter got septic, required IV antibiotics with a PICC line and she was admitted to [facility] as well as she had sustained a fractured femur, which requir ed a repair shortly after the knee replacement. The latter was not involved in the infection. The f ormal also showed some blood leakage from time to time possibly playing a part in the anemic presenta tion as she does not have any hematemesis, melena, or obvious urinary tract bleeding. In any event, she was admitted for transfusions and to continue on her IV antibiotics, which she was seen by Infect ious Disease and placed on meropenem and large doses of Levaquin. Past Medical History: The patient has a long history of hypertension and has had some other issues r equiring various medications for anxiety and depression, which she continues on at this time. Social History: Nonsmoker and nondrinker. Physical Examination: General/Vital signs: The patient is a pale, slightly obese elderly female with no acute distress and stable vital signs. Head and Neck. Pale conjunctiva. ENT negative. Chest: Clear to P and A. Cardiovascular: PMI in midclavicular line. Heart sounds normal. Peripheral pulses present and equa l bilaterally. Abdomen: No organomegaly. Bowel sounds present. Extremities: Slightly dehydrated, good tone and movement bilaterally. Reflexes are physiologic. Rectal/Pelvic: Deferred. Impression: Anemia of unknown etiology, post knee replacement with sepsis, post fractured femur. Plan: The patient will be admitted, transfused with 2 units of blood. Continue on her outside regim en for infection, which she states she was told. She had been on antibiotics every 6 months that she has so called super bug. She continues with the PICC line, meropenem and Levaquin. Once she was tr ansfused, the patient apparently has an appointment with an orthopedic surgeon/trauma surgeon, who re paired her femur, on Friday morning in her an attempt to continue with this appointment by cliff kam. HR/MODL Voice ID: [id number]
== END 2020-10-27 09:59 | disposition home or self-care (01) | DRG 920 ==
LOC: ER 07:01 → ERHOLD 10:13 → 2ND 12:30
PROVIDERS: ADMIT Family Medicine; ATTEND Family Medicine
PROC: 30233N1 Transfusion of Nonautologous Red Blood Cells into Peripheral Vein, Percutaneous Approach (ICD-10-PCS; principal; 2020-10-26)
DX: L76.22 Postprocedural hemorrhage of skin and subcutaneous tissue following other procedure (principal); Z68.41 Body mass index [BMI] 40.0-44.9, adult; D64.9 Anemia, unspecified; I10 Essential (primary) hypertension; E66.9 Obesity, unspecified; K21.9 Gastro-esophageal reflux disease without esophagitis; Z88.0 Allergy status to penicillin; Z88.5 Allergy status to narcotic agent; Z79.82 Long term (current) use of aspirin; Z79.890 Hormone replacement therapy; Z79.899 Other long term (current) drug therapy; Z85.3 Personal history of malignant neoplasm of breast; Z96.659 Presence of unspecified artificial knee joint; Z90.49 Acquired absence of other specified parts of digestive tract; Z20.822 Contact with and (suspected) exposure to COVID-19
CPT/HCPCS: 36415; 36430; 80048; 85014; 85018; 85025; 86850; 86900; 86901; 93971; 96374; 99283; J2185; J2405; J7050; P9016; U0003